=== PATIENT | male | born 1970 | race Caucasian/White ===

== ENCOUNTER 2022-01-24 18:30 | Emergency (ER) | payer MEDICARE ==
[2022-01-24 20:03] LABS: HEMOGLOBIN 11.6 gm/dl (14.0-17.5); RED BLOOD COUNT 4.18 M/UL (4.20-5.50); WHITE BLOOD COUNT 15.1 K/UL (4.5-11.0)
[2022-01-24 20:25] LABS: BUN/CREATININE RATIO 13 (0-10)
== END 2022-01-24 21:45 | disposition home or self-care (01) ==
LOC: ER1 18:30
PROVIDERS: Preventive Medicine Occupational Medicine
DX: G40.909 Epilepsy, unspecified, not intractable, without status epilepticus (principal); Z76.5 Malingerer [conscious simulation]; I11.0 Hypertensive heart disease with heart failure; I50.9 Heart failure, unspecified; Z20.822 Contact with and (suspected) exposure to COVID-19
CPT/HCPCS: 0240U; 36600; 70450; 71045; 80053; 80307; 82140; 82550; 82553; 82803; 83605; 83690; 83880; 84484; 85025; 85652; 86140; 93005; 96361; 96374; 96375; 99285; G0480; J1953; J2060